=== PATIENT | female | born 1975 | race African-American/Black ===

== ENCOUNTER 2021-01-07 07:28 | Emergency (ER) | payer MEDICAID ==
[~2021-01-07] VITALS: Ht 160 cm; Wt 77.0 kg
[2021-01-07 07:32] VITALS: BP 134/97
[2021-01-07] MEDS ORDERED: IBUP-2028 PO (07:57)
[2021-01-07] MEDS ORDERED: T3 PO (07:57)
[2021-01-07] MEDS ORDERED: ACETAMINOPHEN 325MG TABLET PO ONE (08:00)
== END 2021-01-07 09:30 | disposition home or self-care (01) ==
LOC: ER 07:28
DX: S52.614A Nondisplaced fracture of right ulna styloid process, initial encounter for closed fracture (principal); F12.10 Cannabis abuse, uncomplicated; X58.XXXA Exposure to other specified factors, initial encounter; Y93.89 Activity, other specified; Y92.018 Other place in single-family (private) house as the place of occurrence of the external cause
CPT/HCPCS: 29125; 73100; 99283

== ENCOUNTER 2021-05-24 09:40 | Emergency (ER) | payer MEDICAID ==
[~2021-05-24] VITALS: Ht 160 cm; Wt 79.0 kg
[~2021-05-24 09:40] MED LIST: IBUP-2028 PO; T3 PO
[2021-05-24] MEDS ORDERED: CIPR5DRO EACHEYE (10:57)
[2021-05-24 11:12] VITALS: BP 96/55
== END 2021-05-24 11:13 | disposition home or self-care (01) ==
LOC: ER 09:43
DX: H10.33 Unspecified acute conjunctivitis, bilateral (principal); F12.10 Cannabis abuse, uncomplicated
CPT/HCPCS: 99283

== ENCOUNTER 2022-11-30 15:11 | Emergency (ER) | payer MEDICAID ==
[~2022-11-30] VITALS: Ht 160 cm; Wt 81.0 kg
[~2022-11-30 15:11] MED LIST changes: +CIPR5DRO EACHEYE
[2022-11-30] MEDS ORDERED: IBUP-2029 MT (18:13)
[2022-11-30 19:00] VITALS: BP 154/93
== END 2022-11-30 19:01 | disposition home or self-care (01) ==
LOC: ER 15:11
DX: M79.675 Pain in left toe(s) (principal); F12.90 Cannabis use, unspecified, uncomplicated
CPT/HCPCS: 73630; 81025; 99283; Z7610

== ENCOUNTER 2023-10-17 16:50 | Emergency (ER) | payer SELFPAY ==
[~2023-10-17] VITALS: Ht 160 cm; Wt 78.0 kg
[~2023-10-17 16:50] MED LIST changes: +IBUP-2029 MT
[2023-10-17 17:12] VITALS: O2SAT 100
[2023-10-17] MEDS: ACETAMINOPHEN 325MG TABLET PO NR (18:57)
[2023-10-17] MEDS ORDERED: DICL2SOL TP (20:58)
[2023-10-17 21:05] VITALS: BP 132/68; PULSE 78; RESP 18; TEMP 98.7
== END 2023-10-17 21:06 | disposition home or self-care (01) ==
LOC: ER 16:50
DX: M54.2 Cervicalgia (principal); R51.9 Headache, unspecified; Z98.890 Other specified postprocedural states; V98.8XXA Other specified transport accidents, initial encounter; Y93.89 Activity, other specified; Y92.89 Other specified places as the place of occurrence of the external cause; Y99.8 Other external cause status
CPT/HCPCS: 99283